=== PATIENT | male | born 1950 | race Caucasian/White ===

== ENCOUNTER 2017-11-01 12:18 | Emergency (ER) | payer OTHER, MEDICARE ==
[~2017-11-01] VITALS: Ht 193 cm; Wt 180.0 kg
[~2017-11-01 12:18] MED LIST: CLIN200T PO; GUAI400T8 PO; OMEP20CA5 PO; PETR30T TOP; SERT50 PO; XANA1TAB6 PO
[2017-11-01 12:43] VITALS: BP 99/62; PULSE 99; RESP 19; TEMP 98.3; O2SAT 95
[2017-11-01 12:46] VITALS: BP 99/62; PULSE 99; RESP 19; TEMP 98.3; O2SAT 95
--- NOTE | 2017-11-01 14:42 | PD ---
HPI Chief Complaint: Skin Problem Time Seen by Provider: 13:46 Travel History International Travel<30 days: No Contact w/Intl Traveler<30days: No Traveled to known affect area: No History of Present Illness HPI 67 yo male here for evaluation of possible sepsis. Comes from [facility]. Having subjective chills and sweats but no obvious fevers. has had a rash to abdomen and back for 2 days and not getting better. per patient he was recently admitted for sepsis at a different hospital, released and currently reciding at the [facility]. Denies any injuries or precipitating factors. Not been given anything for this. Has an indwelling catheter chronically and uses oxygen. Denies any chest pain or SOB. States having nausea and vomit. No allergies to meds. No other medical problems at this time. per patient pain is 6/10. History of Diabetes and atrial fib on blood thinners per patient. PFSH Past Medical History Anxiety: Yes Depression: Yes Cardiovascular Problems: Yes Diabetes: Yes GERD: Yes Musculoskeletal: Yes (Chronic knee pain) Respiratory: Yes Past Surgical History Cholecystectomy: Yes Social History Alcohol Use: No Tobacco Use: Yes (1 PPD, Quit 11/05/09) Substance Use: No Allergies-Medications (Allergen,Severity, Reaction): Coded Allergies: No Known Allergies (Verified Adverse Reaction, Unknown, 11/01/17) Reported Meds & Prescriptions Reported Meds & Active Scripts Active Reported Clinoril (Sulindac) 200 Mg Tab 200 Mg PO BID Zoloft (Sertraline HCl) 50 Mg Tab 50 Mg PO DAILY Vaseline (Petrolatum) 30 Gm Oint 1 Dose TOP DAILY Prilosec (Omeprazole) 20 Mg Capcr 20 Mg PO DAILY Guaifenesin 400 Mg Tab 400 Mg PO TID Xanax (Alprazolam) 1 Mg Tab 1 Mg PO HS Review of Systems Except as stated in HPI: all other systems reviewed are Neg Physical Exam Narrative GENERAL: SKIN: Warm and dry. HEAD: Atraumatic. Normocephalic. EYES: Pupils equal and round 4 mms reactive to light and accommodation. No scleral icterus. No injection or drainage. ENT: No nasal bleeding or discharge. Mucous membranes pink and moist. Tongue is midline. No uvula deviation. NECK: Trachea midline. No JVD. CARDIOVASCULAR: Regular rate and rhythm. No murmurs, S3, S4. RESPIRATORY: No accessory muscle use. Clear to auscultation. Breath sounds equal bilaterally. GASTROINTESTINAL: Abdomen soft, non-tender, nondistended. Hepatic and splenic margins not palpable. MUSCULOSKELETAL: Extremities without clubbing, cyanosis, or edema. No obvious deformities. Full range of motion of the upper and lower extremities bilaterally. Patient does have bilateral lower leg edema which appears to be chronic. Patient does have chronic wounds to his lower legs are currently wrapped. Patient does have an erythematous indurated rash on the abdomen is no pruritic but slightly painful. Warm to the touch. Also noted on the penis. No obvious lymphadenopathy noted. Noted on the back as well. NEUROLOGICAL: Awake and alert. No obvious cranial nerve deficits. Motor grossly within normal limits. Five out of 5 muscle strength in the arms and legs. Normal speech. PSYCHIATRIC: Appropriate mood and affect; insight and judgment normal. Data Data Last Documented VS Vital Signs Date Time Temp Pulse Resp B/P (MAP) Pulse Ox O2 Delivery O2 Flow Rate FiO2 11/01/17 12:46 98.3 99 19 99/62 (74) 95 Nasal Cannula 6.00 Orders Orders Electrocardiogram (11/01/17 13:46) Complete Blood Count With Diff (11/01/17 13:46) Comprehensive Metabolic Panel (11/01/17 13:46) Prothrombin Time / Inr (Pt) (11/01/17 13:46) Act Partial Throm Time (Ptt) (11/01/17 13:46) Blood Culture (11/01/17 13:46) C-Reactive Protein (Crp) (11/01/17 13:46) Magnesium (Mg) (11/01/17 13:46) Wound Culture And Gram Stain (11/01/17 13:46) Iv Access Insert/Monitor (11/01/17 13:46) Ecg Monitoring (11/01/17 13:46) Oximetry (11/01/17 13:46) Lactic Acid Sepsis Protocol (11/01/17 13:46) Chest, Single Ap (11/01/17 ) [facility] Medical Decision Making Medical Screen Exam Complete: Yes Emergency Medical Condition: Yes Medical Record Reviewed: Yes Differential Diagnosis Cellulitis versus impetigo versus erysipelas versus sepsis versus chronic rash versus allergic reaction versus normal exam Narrative Course 67-year-old male that presents to the ED for evaluation of possible sepsis. Patient was properly examined and was found to have signs and symptoms of unclear etiology but does appear to have possible infectious rash. Labs and imaging ordered. Case will be signed out to incoming provider pending disposition and plan. Esvin Sneed Nov 01, 2017 14:42
--- NOTE | 2017-11-01 15:06 | PD ---
Physical Exam Date Seen by Provider: Nov 01, 2017 Time Seen by Provider: 14:56 Narrative The patient is a 67-year-old male who was initially evaluated by the mid-level provider. Please refer to the initial history, physical, diagnostic evaluation , and treatment modality plan. Data Data Last Documented VS Vital Signs Date Time Temp Pulse Resp B/P (MAP) Pulse Ox O2 Delivery O2 Flow Rate FiO2 11/01/17 17:44 90 21 121/63 (82) 98 Nasal Cannula 11/01/17 15:07 98.4 6.00 Orders Orders Electrocardiogram (11/01/17 13:46) Complete Blood Count With Diff (11/01/17 13:46) Comprehensive Metabolic Panel (11/01/17 13:46) Prothrombin Time / Inr (Pt) (11/01/17 13:46) Act Partial Throm Time (Ptt) (11/01/17 13:46) Blood Culture (11/01/17 13:46) C-Reactive Protein (Crp) (11/01/17 13:46) Magnesium (Mg) (11/01/17 13:46) Wound Culture And Gram Stain (11/01/17 13:46) Iv Access Insert/Monitor (11/01/17 13:46) Ecg Monitoring (11/01/17 13:46) Oximetry (11/01/17 13:46) Lactic Acid Sepsis Protocol (11/01/17 13:46) Chest, Single Ap (11/01/17 ) Sodium Chlor 0.9% 1000 Ml Inj (Ns 1000 M (11/01/17 15:15) (Hub Use Only)Inp Phy Cons/Ref (11/01/17 ) Labs Laboratory Tests Test 11/01/17 15:40 11/01/17 17:15 White Blood Count 7.5 TH/MM3 Red Blood Count 4.02 MIL/MM3 Hemoglobin 11.2 GM/DL Hematocrit 33.8 % Mean Corpuscular Volume 83.9 FL Mean Corpuscular Hemoglobin 27.9 PG Mean Corpuscular Hemoglobin Concent 33.3 % Red Cell Distribution Width 20.4 % Platelet Count 256 TH/MM3 Mean Platelet Volume 8.6 FL Neutrophils (%) (Auto) 47.0 % Lymphocytes (%) (Auto) 36.0 % Monocytes (%) (Auto) 11.9 % Eosinophils (%) (Auto) 3.6 % Basophils (%) (Auto) 1.5 % Neutrophils # (Auto) 3.5 TH/MM3 Lymphocytes # (Auto) 2.7 TH/MM3 Monocytes # (Auto) 0.9 TH/MM3 Eosinophils # (Auto) 0.3 TH/MM3 Basophils # (Auto) 0.1 TH/MM3 CBC Comment DIFF FINAL Differential Comment Prothrombin Time 24.8 SEC Prothromb Time International Ratio 2.5 RATIO Activated Partial Thromboplast Time 34.8 SEC Lactic Acid Level 1.3 mmol/L Blood Urea Nitrogen 4 MG/DL Creatinine 1.08 MG/DL Random Glucose 80 MG/DL Total Protein 6.4 GM/DL Albumin 2.0 GM/DL Calcium Level 9.2 MG/DL Magnesium Level 1.6 MG/DL Alkaline Phosphatase 56 U/L Aspartate Amino Transf (AST/SGOT) 55 U/L Alanine Aminotransferase (ALT/SGPT) 15 U/L Total Bilirubin 0.4 MG/DL Sodium Level 137 MEQ/L Potassium Level 3.6 MEQ/L Chloride Level 92 MEQ/L Carbon Dioxide Level 35.6 MEQ/L Anion Gap 9 MEQ/L Estimat Glomerular Filtration Rate 68 ML/MIN C-Reactive Protein 2.70 MG/DL [facility] Medical Record Reviewed: Yes Supervised Visit with JAVON: Yes Interpretation(s) EKG reveals atrial fibrillation with a rate in 99. Low QRS voltage noted. Q wave noted in V1 and V2. Last Impressions Chest X-Ray 11/01/17 0000 Signed Impressions: Service Date/Time: Wednesday, November 01, 2017 14:58 - CONCLUSION: 1. Visualized portions of the lungs are clear. These note the left costophrenic angle is excluded from this exam and therefore, small left-sided effusion cannot be ruled out. 2. Otherwise negative. Heart size is normal. Cem Flores MD Laboratory Tests Test 11/01/17 15:40 11/01/17 17:15 White Blood Count 7.5 TH/MM3 Red Blood Count 4.02 MIL/MM3 Hemoglobin 11.2 GM/DL Hematocrit 33.8 % Mean Corpuscular Volume 83.9 FL Mean Corpuscular Hemoglobin 27.9 PG Mean Corpuscular Hemoglobin Concent 33.3 % Red Cell Distribution Width 20.4 % Platelet Count 256 TH/MM3 Mean Platelet Volume 8.6 FL Neutrophils (%) (Auto) 47.0 % Lymphocytes (%) (Auto) 36.0 % Monocytes (%) (Auto) 11.9 % Eosinophils (%) (Auto) 3.6 % Basophils (%) (Auto) 1.5 % Neutrophils # (Auto) 3.5 TH/MM3 Lymphocytes # (Auto) 2.7 TH/MM3 Monocytes # (Auto) 0.9 TH/MM3 Eosinophils # (Auto) 0.3 TH/MM3 Basophils # (Auto) 0.1 TH/MM3 CBC Comment DIFF FINAL Differential Comment Prothrombin Time 24.8 SEC Prothromb Time International Ratio 2.5 RATIO Activated Partial Thromboplast Time 34.8 SEC Lactic Acid Level 1.3 mmol/L Blood Urea Nitrogen 4 MG/DL Creatinine 1.08 MG/DL Random Glucose 80 MG/DL Total Protein 6.4 GM/DL Albumin 2.0 GM/DL Calcium Level 9.2 MG/DL Magnesium Level 1.6 MG/DL Alkaline Phosphatase 56 U/L Aspartate Amino Transf (AST/SGOT) 55 U/L Alanine Aminotransferase (ALT/SGPT) 15 U/L Total Bilirubin 0.4 MG/DL Sodium Level 137 MEQ/L Potassium Level 3.6 MEQ/L Chloride Level 92 MEQ/L Carbon Dioxide Level 35.6 MEQ/L Anion Gap 9 MEQ/L Estimat Glomerular Filtration Rate 68 ML/MIN C-Reactive Protein 2.70 MG/DL Differential Diagnosis Differential diagnosis includes sepsis, cellulitis, erysipelas, medication side effect, allergic reaction, dermatitis, tinea corporis. Narrative Course I, Dr. Davidson, have reviewed the advance practice practitioner's documentation and am in agreement, met with the patient face to face, made the diagnosis, and the medical decision making was done by me. *My assessment and Findings: The patient is a 67-year-old male was initially evaluated by the previous provider, Esvin Sneed PA-C. The patient states he was admitted to [facility] for several months for possible infection to the abdomen. The patient was then discharged to [facility]. The patient states he once again developed this erythematous rash over the abdomen as well as the right form in the left wrist which is not pruritic. He denies any fever, chills, or sweats. He does complain of a history of nausea and vomiting with eating but denies any significant weight loss. The patient was sent in for a sepsis workup. The patient denies any abdominal pain , denies any pain or swelling associated with the rash. He is unsure if he started any recent new medications. The patient's rash consistent with mild erythema to the upper extremity is bilateral with scaling. He has chronic venous stasis changes lower extremities with dressings in place. He has tinea changes under the pannus of the abdomen and in the inguinal region. The abdomen itself reveals minimal erythema, there is scaling noted of the upper extremities but not over the abdomen. There is no calor noted. The patient is afebrile. White count is normal. Lactic acid is normal, I do not believe this is cellulitis. The patient appears to have a chronic rash, may benefit from outpatient follow-up with dermatology. Diagnosis Primary Impression: Rash Patient Instructions: General Instructions Additional Instruction: Please provide the patient a copy of his labs at discharge. Follow-up with dermatology in an outpatient basis. Return if symptoms worsen or progress. Med/Other Pt SpecificInfo: No Change to Meds Disposition: 70 TRANSFER TO OTHER FACILITY (transfer back to residential.) Condition: Stable Bart Davidson MD Nov 01, 2017 15:05
[2017-11-01 15:07] VITALS: BP 116/51; PULSE 90; PULSE 91; RESP 22; TEMP 98.4; O2SAT 97
[2017-11-01] MEDS ORDERED: SODIUM CHLOR 0.9% 1000 ML INJ 1,000 ML IV ONE (15:15)
--- NOTE | 2017-11-01 15:37 | RADRPT ---
EXAM DATE/TIME: 11/01/2017 14:58 [facility] COMPARISON: No previous studies available for comparison. INDICATIONS : Chronic shortness of breath. MEDICAL HISTORY : Chronic obstructive pulmonary disease. Diabetes. SURGICAL HISTORY : Cholecystectomy. ENCOUNTER: Initial ACUITY: >1 year PAIN SCORE: 0/10 LOCATION: Bilateral chest FINDINGS: A single view of the chest is showing limited as the left costophrenic angle is not included on this exam. Remaining portions of the lungs are clear. Heart size appears to be normal. Osseous structures are grossly intact. CONCLUSION: 1. Visualized portions of the lungs are clear. These note the left costophrenic angle is excluded fro m this exam and therefore, small left-sided effusion cannot be ruled out. 2. Otherwise negative. Heart size is normal. Cem Flores MD on November 01, 2017 at 15:30 Board Certified Radiologist. This report was verified electronically.
[2017-11-01 16:25] LABS: AUTOMATED NEUTROPHIL # 3.5 TH/MM3 (1.8-7.7); BASOPHIL # 0.1 TH/MM3 (0-0.2); BASOPHIL % 1.5 % (0.0-2.0); EOSINOPHIL # 0.3 TH/MM3 (0-0.4); EOSINOPHIL % 3.6 % (0.0-4.0); HEMATOCRIT 33.8 % (39.0-51.0); HEMOGLOBIN 11.2 GM/DL (13.0-17.0); LYMPHOCYTE # 2.7 TH/MM3 (1.0-4.8); MEAN CELL VOLUME 83.9 FL (80.0-100.0); MEAN CORPUSCULAR HEMOGLOBIN 27.9 PG (27.0-34.0); MEAN CORPUSCULAR HGB CONC 33.3 % (32.0-36.0); MEAN PLATELET VOLUME 8.6 FL (7.0-11.0); MONO % 11.9 % (0.0-8.0); MONOCYTE # 0.9 TH/MM3 (0-0.9); PLATELET COUNT 256 TH/MM3 (150-450); RED BLOOD COUNT 4.02 MIL/MM3 (4.50-5.90); RED CELL DISTRIBUTION WIDTH 20.4 % (11.6-17.2); WHITE BLOOD COUNT 7.5 TH/MM3 (4.0-11.0)
[2017-11-01 16:36] LABS: INTERNATIONAL NORMALIZED RATIO 2.5 RATIO; PROTHROMBIN TIME - PATIENT 24.8 SEC (9.8-11.6)
[2017-11-01 17:44] VITALS: BP 121/63; PULSE 90; RESP 21; O2SAT 98
[2017-11-01 17:59] LABS: ALT (GPT) 15 U/L (12-78)
[2017-11-01 18:00] LABS: AST (GOT) 55 U/L (15-37); BICARBONATE 35.6 MEQ/L (21.0-32.0); BLOOD UREA NITROGEN 4 MG/DL (7-18); CALCIUM 9.2 MG/DL (8.5-10.1); CHLORIDE 92 MEQ/L (98-107); CREATININE 1.08 MG/DL (0.60-1.30); GLOMERULAR FILTRATION RATE 68 ML/MIN (>89); GLUCOSE,RANDOM 80 MG/DL (74-106); MAGNESIUM 1.6 MG/DL (1.5-2.5); SODIUM (NA) 137 MEQ/L (136-145)
[2017-11-01 18:02] LABS: ALKALINE PHOSPHATASE 56 U/L (45-117); TOTAL BILIRUBIN ADULT 0.4 MG/DL (0.2-1.0); TOTAL PROTEIN 6.4 GM/DL (6.4-8.2)
[2017-11-01 18:44] VITALS: BP 116/57; PULSE 92
--- NOTE | 2017-11-03 11:41 | EKG ---
Date Performed: 11/01/2017 Time Performed: 17:55:33 PTAGE: 67 years EKG: ATRIAL FIBRILLATION LOW QRS VOLTAGE INFERIOR MYOCARDIAL INFARCTION ANTEROSEPTAL MYOCARDIAL INFARCTION PROLONGED QT INTERVAL ABNORMAL ECG NO PREVIOUS TRACING DOCTOR: Manda Plata Interpretating Date/Time 11/03/2017 11:40:42
== END 2017-11-01 20:04 | disposition short-term general hospital (02) ==
LOC: NEPC 12:18
DX: R21 Rash and other nonspecific skin eruption (principal); R11.2 Nausea with vomiting, unspecified; I48.91 Unspecified atrial fibrillation; E11.9 Type 2 diabetes mellitus without complications; Z79.01 Long term (current) use of anticoagulants; Z72.0 Tobacco use
CPT/HCPCS: 71045; 80053; 83605; 83735; 85025; 85610; 85730; 86140; 87040; 93005; 99285; J7030